=== PATIENT | male | born 1945 | race Caucasian/White ===

== ENCOUNTER 2022-11-26 16:36 | Inpatient (IN) | payer MEDICARE, BC ==
[2022-11-26] MEDS ORDERED: MEROPENEM IV SCH (19:00)
[2022-11-26] MEDS ORDERED: SODIUM CHLORIDE 0.9% IV SCH (19:00)
[2022-11-26 19:15] LABS: BASOPHILS ABSOLUTE AUTO 0.04 K/uL (0.00-0.10); BASOPHILS PERCENT AUTO 0.3 % (0.1-1.3); EOSINOPHILS ABSOLUTE AUTO 0.09 K/uL (0.00-0.40); EOSINOPHILS PERCENT AUTO 0.6 % (0.0-5.4); HEMATOCRIT 41.9 % (38.4-49.7); HEMOGLOBIN 14.4 g/dL (12.9-16.9); IMMATURE GRAN ABSOLUTE AUTO 0.19 K/uL (0.00-0.23); IMMATURE GRAN PERCENT AUTO 1.2 % (0.0-0.7); LYMPHOCYTES ABSOLUTE AUTO 2.18 K/uL (0.8-3.3); LYMPHOCYTES PERCENT AUTO 13.6 % (11.4-47.7); MEAN CORPUSCULAR HEMOGLOBIN 28.9 pg (31.6-35.5); MEAN CORPUSCULAR HGB CONC 34.4 g/dL (31.6-35.5); MEAN CORPUSCULAR VOLUME 84.1 fL (81.4-99.0); MONOCYTES ABSOLUTE AUTO 1.22 K/uL (0.20-0.90); MONOCYTES PERCENT AUTO 7.6 % (3.3-12.6); NEUTROPHILS ABSOLUTE AUTO 12.27 K/uL (1.0-7.6); NEUTROPHILS PERCENT AUTO 76.7 % (40.0-78.1); PLATELET COUNT,PLT 245 K/uL (130-375); RED BLOOD CELL COUNT 4.98 M/uL (4.14-5.76)
[2022-11-26 19:45] LABS: A/G RATIO 0.6 (1.2-2.2); ALANINE AMINOTRANSFERASE,ALT 97 U/L (12-78); ALBUMIN 2.6 g/dL (3.4-5.0); ALKALINE PHOSPHATASE 168 U/L (46-116); ANION GAP 13.3 mmol/L (5.0-14.0); ASPARTATE AMNIOTRANSFERASE,AST 58 U/L (15-37); BLOOD UREA NITROGEN,BUN 26 mg/dL (7-18); CALCIUM 8.3 mg/dL (8.5-10.1); CARBON DIOXIDE,CO2 28 mmol/L (21-32); CHLORIDE,CL 95 mmol/L (100-108); CREATININE 1.9 mg/dL (0.8-1.3); EST CRCL DRUG DOSING (CG) 30.31 mL/min; ESTIMATED GFR 36 mL/min (>60); GLUCOSE RANDOM 107 mg/dL (74-106); POTASSIUM,K 3.3 mmol/L (3.6-5.2); PROTEIN TOTAL,TP 7.3 g/dL (6.4-8.2); SODIUM,NA 133 mmol/L (140-148)
[2022-11-26 20:16] LABS: APPEARANCE,URINE CLOUDY (CLEAR); BILIRUBIN,URINE NEGATIVE (NEGATIVE); COLOR,URINE YELLOW (YELLOW); GLUCOSE,URINE NEGATIVE (NEGATIVE); KETONES,URINE NEGATIVE (NEGATIVE); LEUKOCYTE ESTERASE,URINE NEGATIVE (NEGATIVE); NITRITE,URINE NEGATIVE (NEGATIVE); OCCULT BLOOD,URINE TRACE-INTACT (NEGATIVE); PH,URINE 5.5 (5.0-8.0); PROTEIN,URINE >=300 mg/dL (NEGATIVE); UROBILINOGEN,URINE 0.2 EU/dL (0.2-1.0)
[2022-11-26 20:17] LABS: AMORPHOUS SEDIMENT,URINE MODERATE; BACTERIA,URINE MANY; EPITHELIAL CELLS,URINE RARE; RBC,URINE 0-5 (0-5); WBC,URINE 0-5 (0-5)
[2022-11-26 20:19] LABS: MUCUS,URINE RARE
[2022-11-26] MEDS ORDERED: Potassium Chloride 20 MEQ in Premix Bag 1 BAG IV ONE (23:01)
[2022-11-26] MEDS ORDERED: Morphine 2 MG/ML SYRINGE IVPUSH PRN (23:01)
[2022-11-26] MEDS ORDERED: Bisacodyl 5 MG Tab PO PRN (23:01)
[2022-11-26] MEDS ORDERED: Enoxaparin 30 MG/0.3 ML Syringe SUBCUT SCH (23:01)
[2022-11-26] MEDS ORDERED: LORazepam 2 MG/ML SDV IV PRN (23:01)
[2022-11-26] MEDS ORDERED: Ondansetron 4 MG Tab.DIS PO PRN (23:01)
[2022-11-26] MEDS ORDERED: Albuterol 0.083% 2.5 MG/3 ML Neb Soln NEB PRN (23:01)
[2022-11-26] MEDS ORDERED: Sodium Chloride 0.9% 1,000 ML IV SCH (23:01)
[2022-11-26] MEDS ORDERED: Potassium Chloride 10 MEQ in Premix Bag 1 BAG IV ONE (23:01)
[2022-11-26] MEDS ORDERED: Naloxone 0.4 MG/ML SDV IVPUSH PRN (23:01)
[2022-11-26] MEDS: Acetaminophen 325 MG Tab PO PRN (23:33)
[2022-11-26] MEDS: Docusate Sodium 100 MG Cap PO SCH (23:33)
[2022-11-26] MEDS: Pantoprazole 40 MG Vial IV SCH (23:36)
[2022-11-27] MEDS: oxyCODONE 5 MG Tab PO PRN ×5 (02:15→21:52)
[2022-11-27 05:48] LABS: BASOPHILS ABSOLUTE AUTO 0.06 K/uL (0.00-0.10); BASOPHILS PERCENT AUTO 0.4 % (0.1-1.3); EOSINOPHILS ABSOLUTE AUTO 0.12 K/uL (0.00-0.40); EOSINOPHILS PERCENT AUTO 0.8 % (0.0-5.4); HEMATOCRIT 41.4 % (38.4-49.7); IMMATURE GRAN ABSOLUTE AUTO 0.24 K/uL (0.00-0.23); IMMATURE GRAN PERCENT AUTO 1.5 % (0.0-0.7); LYMPHOCYTES ABSOLUTE AUTO 1.96 K/uL (0.8-3.3); LYMPHOCYTES PERCENT AUTO 12.4 % (11.4-47.7); MEAN CORPUSCULAR HEMOGLOBIN 28.8 pg (31.6-35.5); MEAN CORPUSCULAR HGB CONC 33.8 g/dL (31.6-35.5); MEAN CORPUSCULAR VOLUME 85.2 fL (81.4-99.0); MONOCYTES ABSOLUTE AUTO 1.17 K/uL (0.20-0.90); MONOCYTES PERCENT AUTO 7.4 % (3.3-12.6); NEUTROPHILS ABSOLUTE AUTO 12.31 K/uL (1.0-7.6); NEUTROPHILS PERCENT AUTO 77.5 % (40.0-78.1); PLATELET COUNT,PLT 241 K/uL (130-375); RED BLOOD CELL COUNT 4.86 M/uL (4.14-5.76); WHITE BLOOD CELL COUNT,WBC 15.9 K/uL (3.2-11.0)
[2022-11-27 06:02] LABS: ANION GAP 12.5 mmol/L (5.0-14.0); CALCIUM 7.9 mg/dL (8.5-10.1); CREATININE 2.3 mg/dL (0.8-1.3); EST CRCL DRUG DOSING (CG) 25.04 mL/min; POTASSIUM,K 3.5 mmol/L (3.6-5.2)
[2022-11-27] MEDS ORDERED: MEROPENEM IV SCH (07:00)
[2022-11-27] MEDS ORDERED: SODIUM CHLORIDE 0.9% IV SCH (07:00)
[2022-11-27] MEDS ORDERED: Meropenem 1 GM in Sodium Chloride 0.9% 100 ML IV SCH (08:00)
[2022-11-27] MEDS: Docusate Sodium 100 MG Cap PO SCH ×2 (08:39→21:39)
[2022-11-27] MEDS: Chlorthalidone 25 MG Tab PO SCH (08:39)
[2022-11-27] MEDS: amLODIPine 5 MG Tab PO SCH (08:39)
[2022-11-27] MEDS ORDERED: Losartan 50 MG Tab PO SCH (09:00)
[2022-11-27] MEDS ORDERED: Potassium Chloride 20 MEQ Tab.ER PO ONE (09:00)
[2022-11-27] MEDS ORDERED: atorvaSTATin 20 MG Tab PO SCH (09:00)
[2022-11-27] MEDS ORDERED: Metoprolol Succinate 50 MG Tab.ER PO SCH (09:00)
[2022-11-27] MEDS ORDERED: Vancomycin 0.5 GM in Sodium Chloride 0.9% 100 ML IV SCH (11:00)
[2022-11-27] MEDS: Metoprolol Succinate 50 MG Tab.ER PO SCH (12:01)
[2022-11-27] MEDS: cefTRIAXone 2 GM in Sodium Chloride 0.9% 50 ML IV SCH (14:13)
[2022-11-27] MEDS: Losartan 50 MG Tab PO SCH (16:35)
[2022-11-27] MEDS: Pantoprazole 40 MG Vial IV SCH (21:38)
[2022-11-27] MEDS: atorvaSTATin 20 MG Tab PO SCH (21:39)
[2022-11-27] MEDS: Enoxaparin 30 MG/0.3 ML Syringe SUBCUT SCH (21:39)
[2022-11-27] MEDS: Sodium Chloride 0.9% 1,000 ML IV SCH (21:41)
[2022-11-28] MEDS: oxyCODONE 5 MG Tab PO PRN ×5 (01:48→20:54)
[2022-11-28 06:06] LABS: A/G RATIO 0.5 (1.2-2.2); ALANINE AMINOTRANSFERASE,ALT 70 U/L (12-78); ALBUMIN 2.1 g/dL (3.4-5.0); ALKALINE PHOSPHATASE 171 U/L (46-116); ASPARTATE AMNIOTRANSFERASE,AST 36 U/L (15-37); BILIRUBIN TOTAL 0.9 mg/dL (0.2-1.0); BLOOD UREA NITROGEN,BUN 33 mg/dL (7-18); C-REACTIVE PROTEIN 17.55 mg/dL (0.0-0.3); CALCIUM 7.8 mg/dL (8.5-10.1); CARBON DIOXIDE,CO2 27 mmol/L (21-32); CHLORIDE,CL 103 mmol/L (100-108); CREATININE 1.8 mg/dL (0.8-1.3); ESTIMATED GFR 39 mL/min (>60); GLUCOSE RANDOM 104 mg/dL (74-106); HEMATOCRIT 39.9 % (38.4-49.7); HEMOGLOBIN 13.2 g/dL (12.9-16.9); MEAN CORPUSCULAR HEMOGLOBIN 28.6 pg (31.6-35.5); MEAN CORPUSCULAR HGB CONC 33.1 g/dL (31.6-35.5); MEAN CORPUSCULAR VOLUME 86.4 fL (81.4-99.0); POTASSIUM,K 3.6 mmol/L (3.6-5.2); PROTEIN TOTAL,TP 6.4 g/dL (6.4-8.2); RED BLOOD CELL COUNT 4.62 M/uL (4.14-5.76); SODIUM,NA 136 mmol/L (140-148); VANCOMYCIN RANDOM 19.4 ug/mL (0.0-50.0); WHITE BLOOD CELL COUNT,WBC 13.6 K/uL (3.2-11.0)
[2022-11-28 06:14] LABS: ANION GAP 9.6 mmol/L (5.0-14.0)
[2022-11-28] MEDS: Docusate Sodium 100 MG Cap PO SCH ×2 (09:08→20:55)
[2022-11-28] MEDS: Chlorthalidone 25 MG Tab PO SCH (09:08)
[2022-11-28] MEDS: amLODIPine 5 MG Tab PO SCH (09:09)
[2022-11-28] MEDS ORDERED: Gadoteridol 279.3 MG/ML 20 ML SDV IV SCH (11:00)
[2022-11-28] MEDS: Metoprolol Succinate 50 MG Tab.ER PO SCH (11:51)
[2022-11-28] MEDS: cefTRIAXone 2 GM in Sodium Chloride 0.9% 50 ML IV SCH (13:35)
[2022-11-28] MEDS: Losartan 50 MG Tab PO SCH (16:29)
[2022-11-28] MEDS: Sodium Chloride 0.9% 1,000 ML IV SCH (16:32)
[2022-11-28] MEDS: Pantoprazole 40 MG Tab.CR PO SCH (20:55)
[2022-11-28] MEDS: atorvaSTATin 20 MG Tab PO SCH (20:55)
[2022-11-28] MEDS: Enoxaparin 30 MG/0.3 ML Syringe SUBCUT SCH (20:55)
[2022-11-29] MEDS: oxyCODONE 5 MG Tab PO PRN ×4 (00:56→20:51)
[2022-11-29 05:31] LABS: HEMOGLOBIN 13.1 g/dL (12.9-16.9); MEAN CORPUSCULAR HEMOGLOBIN 28.5 pg (31.6-35.5); MEAN CORPUSCULAR HGB CONC 32.8 g/dL (31.6-35.5); RED BLOOD CELL COUNT 4.6 M/uL (4.14-5.76); WHITE BLOOD CELL COUNT,WBC 12.9 K/uL (3.2-11.0)
[2022-11-29 05:47] LABS: CALCIUM 8.2 mg/dL (8.5-10.1); CREATININE 1.4 mg/dL (0.8-1.3); EST CRCL DRUG DOSING (CG) 41.14 mL/min; POTASSIUM,K 3.7 mmol/L (3.6-5.2)
[2022-11-29 05:53] LABS: ANION GAP 9.7 mmol/L (5.0-14.0)
[2022-11-29] MEDS: Docusate Sodium 100 MG Cap PO SCH ×2 (08:09→20:52)
[2022-11-29] MEDS: amLODIPine 5 MG Tab PO SCH (08:09)
[2022-11-29] MEDS: Chlorthalidone 25 MG Tab PO SCH (08:10)
[2022-11-29] MEDS: Acetaminophen 325 MG Tab PO PRN ×2 (09:49→17:10)
[2022-11-29] MEDS: Metoprolol Succinate 50 MG Tab.ER PO SCH (13:22)
[2022-11-29] MEDS: cefTRIAXone 2 GM in Sodium Chloride 0.9% 50 ML IV SCH (13:22)
[2022-11-29] MEDS: Losartan 50 MG Tab PO SCH (17:04)
[2022-11-29] MEDS: Enoxaparin 30 MG/0.3 ML Syringe SUBCUT SCH (20:52)
[2022-11-29] MEDS: atorvaSTATin 20 MG Tab PO SCH (20:52)
[2022-11-29] MEDS: Pantoprazole 40 MG Tab.CR PO SCH (20:52)
[2022-11-30 06:11] LABS: CALCIUM 8.4 mg/dL (8.5-10.1); CREATININE 1.2 mg/dL (0.8-1.3); POTASSIUM,K 3.9 mmol/L (3.6-5.2); VANCOMYCIN RANDOM 16.5 ug/mL (0.0-50.0)
[2022-11-30 06:16] LABS: ANION GAP 12.9 mmol/L (5.0-14.0)
[2022-11-30] MEDS: Acetaminophen 325 MG Tab PO PRN ×2 (08:00→11:48)
[2022-11-30] MEDS: Chlorthalidone 25 MG Tab PO SCH (08:01)
[2022-11-30] MEDS: amLODIPine 5 MG Tab PO SCH (08:01)
[2022-11-30] MEDS: Docusate Sodium 100 MG Cap PO SCH (08:01)
[2022-11-30] MEDS ORDERED: Vancomycin 1.1 GM in Sodium Chloride 0.9% 250 ML IV SCH (09:00)
[2022-11-30] MEDS ORDERED: Enoxaparin 40 MG/0.4 ML Syringe SUBCUT SCH (21:00)
== END 2022-11-30 11:50 | disposition home health service (06) | DRG 552 ==
LOC: JP.ED 16:36 → JP.MS 20:31
PROVIDERS: ADMIT Internal Medicine; ATTEND Internal Medicine
PROC: 02HV33Z Insertion of Infusion Device into Superior Vena Cava, Percutaneous Approach (ICD-10-PCS; principal; 2022-11-29)
DX: M46.44 Discitis, unspecified, thoracic region (principal); N17.9 Acute kidney failure, unspecified; Z20.822 Contact with and (suspected) exposure to COVID-19; I10 Essential (primary) hypertension; E78.00 Pure hypercholesterolemia, unspecified; E87.6 Hypokalemia; R73.03 Prediabetes; E66.9 Obesity, unspecified; Z79.2 Long term (current) use of antibiotics; Z79.899 Other long term (current) drug therapy; Z90.89 Acquired absence of other organs; Z98.890 Other specified postprocedural states; Z68.39 Body mass index [BMI] 39.0-39.9, adult; R50.9 Fever, unspecified; K76.9 Liver disease, unspecified; K57.90 Diverticulosis of intestine, part unspecified, without perforation or abscess without bleeding
CPT/HCPCS: 36415; 71260 ×2; 74177 ×2; 80053; 81001; 83605; 85025; 85651; 86140; 87040 ×2; 87086; 96365; 96375; 99284 ×2; J2185; J3370; J3490 ×3; J7050; Q9967; U0002; 36569; 72157; 72157-26; 80048; 80202; 85027; 93306; 99222; 99232; 99239; A9270-GY; A9579; C1751; C9113; J0696; J1650; J3480; J7030